=== PATIENT | female | born 1985 | race American Indian/Alaskan Native ===

== ENCOUNTER 2018-04-26 08:44 | Emergency (ER) | payer SELFPAY ==
--- NOTE | 2018-04-26 10:20 | Emergency Department Report ---
Blank Doc - Documentation Documentation: 33-year-old female with a past medical history hypertension and previous C- section delivery 2 presents to the Hospital complaining of sneezing, itchy throat, itching ears times one week. Patient moved here from [place] 2 weeks ago. She's been using loratadine and Benadryl when necessary with some improvement. For the past 3 days patient has also noted pelvic discomfort and white vaginal discharge. No Reports of fever. She is sexually active with her fianc only I suspect the patient is having allergies to exposure to different plants/ foliage and [place] compared to [place] and recommend to try an alternative antihistamine Claritin is not helping. Patient educated that she cannot take medication with pseudoephedrine because of her history of high blood pressure. Patient also complaining of intermittent constipation and is stating she is eating a lot of wings are not a lot of vegetables. Encouraged increase fiber and water in diet and take MiraLAX Given patient's pelvic complaints. pelvic Exam and UA and urine preg have been ordered. Mid-level to follow.
--- NOTE | 2018-04-26 10:45 | Emergency Department Report ---
ED Female HPI - General Chief complaint: Urogenital-Female Stated complaint: PELVIC PAIN/SNEEZING Time Seen by Provider: 04/26/18 10:09 Source: patient, RN/MD Mode of arrival: Ambulatory Limitations: No Limitations - History of Present Illness Initial comments: 33-year-old female with a past medical history hypertension and previous C- section delivery 2 presents to the Hospital complaining of sneezing, itchy throat, itching ears times one week. Patient moved here from [place] 2 weeks ago. She's been using loratadine and Benadryl when necessary with some improvement. For the past 3 days patient has also noted pelvic discomfort and white vaginal discharge. No Reports of fever. She is sexually active with her fianc only. Pelvic pain at 4/10 and cramping. No medication taken I suspect the patient is having allergies to exposure to different plants/ foliage and [place] compared to [place] and recommend to try an alternative antihistamine Claritin is not helping. Patient educated that she cannot take medication with pseudoephedrine because of her history of high blood pressure. MD Complaint: vaginal discharge, pelvic pain Onset/Timin -: days(s) Location: suprapubic Severity scale (0 -10): 5 Quality: cramping Consistency: intermittent Improves with: urination Worsens with: none Are you Now?: Yes Last Menstrual Period: 03/28/18 EDC: 01/02/19 Associated Symptoms: vaginal discharge, other (allergy symptoms). denies: vaginal bleeding, abdominal pain, nausea/vomiting, fever/chills, headaches, loss of appetite, dysuria, hematuria, rash, seizure, shortness of breath, syncope, weakness - Related Data Sexually active: Yes Previous Rx's Medication Instructions Recorded Last Taken Type Cetirizine HCl [ZyrTEC] 10 mg PO QDAY 21 Days #21 04/26/18 Unknown Rx tab.rapdis Fluconazole [Diflucan TAB] 200 mg PO ONCE 1 Days #1 tablet 04/26/18 Unknown Rx Fluticasone [Flonase] 1 spray NS QDAY 14 Days #1 bottle 04/26/18 Unknown Rx metroNIDAZOLE [Flagyl] 500 mg PO Q12HR 7 Days #14 tab 04/26/18 Unknown Rx Allergies Allergy/AdvReac Type Severity Reaction Status Date / Time No Known Allergies Allergy Verified 04/26/18 08:59 ED Review of Systems ROS: Stated complaint: PELVIC PAIN/SNEEZING Other details as noted in HPI Constitutional: denies: chills, fever Eyes: denies: eye discharge ENT: congestion (nasal congestion runny nose), other (itchy throat). denies: ear pain, throat pain Respiratory: cough. denies: shortness of breath, SOB with exertion, SOB at rest , wheezing Cardiovascular: denies: chest pain, palpitations, edema, syncope Gastrointestinal: abdominal pain, constipation. denies: nausea, vomiting, diarrhea, hematemesis, melena, hematochezia Genitourinary: denies: urgency, dysuria, discharge Musculoskeletal: denies: back pain, joint swelling, arthralgia Skin: denies: rash, lesions Neurological: denies: headache, weakness ED Past Medical Hx - Past Medical History Previous Medical History?: Yes Hx Hypertension: Yes - Surgical History Past Surgical History?: Yes Additional Surgical History: x 2 - Family History Family history: hypertension - Social History Smoking Status: Never Smoker Substance Use Type: None - Medications Home Medications: Home Medications Medication Instructions Recorded Confirmed Last Taken Type Cetirizine HCl [ZyrTEC] 10 mg PO QDAY 21 Days #21 04/26/18 Unknown Rx tab.rapdis Fluconazole [Diflucan TAB] 200 mg PO ONCE 1 Days #1 tablet 04/26/18 Unknown Rx Fluticasone [Flonase] 1 spray NS QDAY 14 Days #1 bottle 04/26/18 Unknown Rx metroNIDAZOLE [Flagyl] 500 mg PO Q12HR 7 Days #14 tab 04/26/18 Unknown Rx ED Physical Exam - General Limitations: No Limitations General appearance: alert, in no apparent distress - Head Head exam: Present: atraumatic, normocephalic, normal inspection - Eye Eye exam: Present: normal appearance, PERRL, EOMI Pupils: Present: normal accommodation - ENT ENT exam: Present: normal exam, normal orophraynx, mucous membranes moist, TM's normal bilaterally, normal external ear exam, other (nasal mucosal pale and boggy with clear drainage. No maxillary or frontal sinus tenderness) - Neck Neck exam: Present: normal inspection, full ROM. Absent: tenderness, lymphadenopathy, other - Respiratory Respiratory exam: Present: normal lung sounds bilaterally. Absent: respiratory distress, chest wall tenderness - Cardiovascular Cardiovascular Exam: Present: regular rate, normal rhythm, normal heart sounds, rubs. Absent: systolic murmur, diastolic murmur - GI/Abdominal GI/Abdominal exam: Present: soft, normal bowel sounds. Absent: distended, tenderness, guarding, rebound, rigid, mass, bruit, pulsatile mass - External exam: Present: normal external exam. Absent: erythema, swelling, lesions, lacerations, ecchymosis, bleeding Speculum exam: Present: vaginal discharge, cervical discharge. Absent: erythema , vaginal bleeding, foreign body, tissue, laceration Bi-manual exam: Present: normal bi-manual exam. Absent: cervical motion tendernes, adnexal tenderness, adnexal mass, uterine enlargement, uterine tenderness - Extremities Exam Extremities exam: Present: normal inspection, full ROM, normal capillary refill , other (No cce. + 2 pulses in all extremities, no neurovascular compromise). Absent: tenderness, pedal edema, joint swelling, calf tenderness - Back Exam Back exam: Present: normal inspection, full ROM, CVA tenderness (L). Absent: CVA tenderness (R) - Neurological Exam Neurological exam: Present: alert, oriented X3 - Psychiatric Psychiatric exam: Present: normal affect, normal mood - Skin Skin exam: Present: warm, dry, intact, normal color. Absent: rash ED Course Vital Signs 04/26/18 08:56 Temperature 98.1 F Pulse Rate 93 H Respiratory 17 Rate Blood Pressure 133/88 O2 Sat by Pulse 100 Oximetry - Reevaluation(s) Reevaluation #1: 04/26/18 13:26 Patient had uneventful ED stay she chose to wait to be treated for gonorrhea, chlamydia and she has bacterial vaginosis. ED Medical Decision Making - Lab Data Lab Results 04/26/18 Range/Units 10:36 Urine Color Yellow (Yellow) Urine Turbidity Slightly-cloudy (Clear) Urine pH 5.0 (5.0-7.0) Ur Specific [place] 1.028 (1.003-1.030) Urine Protein <15 mg/dl (Negative) mg/dL Urine Glucose (UA) Neg (Negative) mg/dL Urine Ketones Neg (Negative) mg/dL Urine Blood Neg (Negative) Urine Nitrite Neg (Negative) Urine Bilirubin Neg (Negative) Urine Urobilinogen 2.0 (<2.0) mg/dL Ur Leukocyte Esterase Neg (Negative) Urine WBC (Auto) 1.0 (0.0-6.0) /HPF Urine RBC (Auto) 3.0 (0.0-6.0) /HPF U Epithel Cells (Auto) 4.0 (0-13.0) /HPF Urine Mucus 1+ /HPF Urine HCG, Qual Negative (Negative) Wet prep with rare use, no trichomoniasis and less than 20%'. Gonorrhea and chlamydia pending. - Medical Decision Making His is a 33-year-old female here report that she is having multiple symptoms to include allergic symptoms and also vaginal discharge or pelvic pain. She was screened by Dr. Mijares and orders placed. Patient with normal physical exam except she has on her pelvic exam cervical and vaginal vault discharge with mild odor. No CMT tenderness or right adnexal tenderness. Her nasal mucosa is pale and boggy and she has clear drainage otherwise normal HEENT. Lungs are clear. Urinalysis negative for infection, test is negative. Wet prep less than 20% clue cell, rare yeast and negative trichomonas. Gonorrhea and chlamydia test is pending and patient chose to wait until her results are back to see if she needs to be treated for gonorrhea and chlamydia. I discussed with her diagnosis, treatment plan and follow up with [facility] and[facility]or [facility]. Patient voiced understanding and discharged home with prescription for Diflucan on and Flagyl. Vital signs are stable she is afebrile and pain-free. Critical care attestation.: If time is entered above; I have spent that time in minutes in the direct care of this critically ill patient, excluding procedure time. ED Disposition Clinical Impression: Bacterial vaginosis, Yeast infection Allergic rhinitis Qualifiers: Allergic rhinitis trigger: other Allergic rhinitis seasonality: unspecified Qualified Code(s): J30.89 - Other allergic rhinitis Disposition: DC-01 TO HOME OR SELFCARE Is pt being admited?: No Does the pt Need Aspirin: No Condition: Stable Instructions: Bacterial Vaginosis (ED) Additional Instructions: follow-up with [facility] and saw outside [facility] as instructed. Practice safe sex Take medication as instructed You have a small yeast infection so take Diflucan on Take Flagyl for bacterial vaginosis Referrals: PRIMARY CARE, [Primary Care Provider] - 3-5 Days [facility] [Outside] - 3-5 Days Forms: STI Treatment and Prevention, Work/School Release Form(ED)
[2018-04-26 11:12] LABS: Bilirubin,Urine NEG (Negative); Blood,Urine NEG (Negative); Color,Urine Yellow (Yellow); Mucus,Urine 1+ /HPF; Protein,Urine <15 mg/dL mg/dL (Negative)
[2018-04-26 11:14] LABS: HCG Qualitative,Urine Negative (Negative)
[2018-04-26 13:37] VITALS: BP 130/70
== END 2018-04-26 13:38 | disposition home or self-care (01) ==
LOC: ED 08:44
DX: N76.0 Acute vaginitis (principal); B37.3 Candidiasis of vulva and vagina; B96.89 Other specified bacterial agents as the cause of diseases classified elsewhere; J30.89 Other allergic rhinitis; I10 Essential (primary) hypertension
CPT/HCPCS: 81001; 81025; 87210; 87591